=== PATIENT | female | born 1960 | race Caucasian/White ===

== ENCOUNTER → 2016-07-07 | Outpatient (CLI) | payer OTHER | END | disposition home or self-care (01) | LOC: LAB.O 09:37 | DX: Z01.419 Encounter for gynecological examination (general) (routine) without abnormal findings (principal); Z79.890 Hormone replacement therapy ==

== ENCOUNTER → 2020-02-06 | Outpatient (CLI) | payer BC ==
--- NOTE | 2020-02-07 14:01 | CT ---
EXAM DESCRIPTION: Abdoment/Pelvis w/o Contrast CLINICAL HISTORY: 59 years, Female, GROSS HEMATURIA COMPARISON: None. TECHNIQUE: CT of the abdomen and pelvis is performed according to our non contrast protocol. FINDINGS: The lung bases are clear. Liver, spleen, and pancreas are unremarkable. The right kidney is unremarkable. Nonobstructing 2 mm calculus interpolar region left kidney. No hydronephrosis or mass involving either kidney. Urinary bladder is mostly empty but otherwise normal appearance on noncontrast CT There is no lymphadenopathy, inflammation, or free fluid observed. IMPRESSION: 1. Nonobstructing left nephrolithiasis This exam was performed according to our departmental dose-optimization program, which includes automated exposure control, adjustment of the mA and/or kV according to patient size and/or use of iterative reconstruction technique. Electronically signed by: Francois Ledezma MD 02/07/2020 2:00 PM [facility]
== END ==
LOC: EDSTATUS 11:00 → CT 11:06
PROVIDERS: ATTEND Family Medicine
DX: N20.0 Calculus of kidney (principal); R31.0 Gross hematuria

== ENCOUNTER → 2020-02-10 | Outpatient (CLI) | payer BC | LOC: GMAL 14:38 | PROVIDERS: ATTEND Family Medicine | DX: N39.0 Urinary tract infection, site not specified (principal) ==